=== PATIENT | male | born 1980 | race American Indian/Alaskan Native ===

== ENCOUNTER 2017-04-28 15:13 | Emergency (ER) | payer OTHER ==
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
[2017-04-28] MEDS ORDERED: MOTRIN PO ONE (20:01)
[2017-04-28 20:41] VITALS: BP 167/99
== END 2017-04-28 21:09 | disposition home or self-care (01) ==
LOC: ED 15:13
DX: M54.5 Low back pain (principal); R51 Headache; R03.0 Elevated blood-pressure reading, without diagnosis of hypertension; V89.2XXA Person injured in unspecified motor-vehicle accident, traffic, initial encounter; Y93.89 Activity, other specified; Y99.8 Other external cause status; Y92.410 Unspecified street and highway as the place of occurrence of the external cause
CPT/HCPCS: 99282